=== PATIENT | female | born 1985 | race Caucasian/White ===

== ENCOUNTER 2017-09-20 06:10 | Emergency (ER) | payer BC ==
[~2017-09-20] VITALS: Ht 172.7 cm; Wt 99.8 kg
[2017-09-20] MEDS ORDERED: OMEPRAZOLE10 M1 ORAL (06:28)
--- NOTE | 2017-09-20 06:29 | Emergency Room Report ---
History of Present Illness General Chief Complaint: Chest Pain Source: Patient Present Illness HPI 32-year-old female with a history of gastroesophageal reflux disease Comes ER with complaints of right inframammary area rib pain It started when she woke up this morning, sharp, nonradiating, and she has no other symptoms She's not tried any medications Allergies: Coded Allergies: No Known Allergies (Unverified , 09/20/17) Patient History Past Medical History: see triage record Last Menstrual Period: 09/19/17 Now: No Reviewed Nursing Documentation: PMH: Agreed; PSxH: Agreed Nursing Documentation-PMH Past Medical History: No History, Except For Hx Gastrointestinal Problems: No - Endometriosis Review of Systems All Other Systems: negative except mentioned in HPI Physical Exam Vital Signs Date Time Temp Pulse Resp B/P (MAP) Pulse Ox O2 Delivery O2 Flow Rate FiO2 09/20/17 06:19 98.3 95 21 108/67 97 Room Air 98.2 Sp02 EP Interpretation: reviewed, normal General Appearance: no apparent distress, alert, non-toxic Head: normocephalic Eyes: bilateral eye normal inspection, bilateral eye PERRL, bilateral eye EOMI ENT: normal ENT inspection, hearing grossly normal, normal pharynx, no angioedema, normal voice, moist mucus membranes Neck: normal inspection, full range of motion, supple, supple/symm/no masses Respiratory: chest non-tender, lungs clear, normal breath sounds, chest symmetrical, palpation of chest normal Cardiovascular #1: normal peripheral pulses, regular rate, rhythm Cardiovascular #2: 2+ radial (R), 2+ radial (L) Gastrointestinal: normal inspection, non tender, soft, no mass, no guarding, no rebound Rectal: deferred Genitourinary: normal inspection, no CVA tenderness Musculoskeletal: back normal, gait/station normal, normal range of motion, non- tender, no calf tenderness, Desiree's Sign negative Neurologic: alert, responsive, 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 Considered aortic dissection, will re-evaluate. EKG Diagnostic Results EKG Time: 06:31 EP Interpretation: no st-t changes, no twi, normal qtc Rate: normal Rhythm: NSR ST Segments: no acute changes Rhythm Strip Diag. Results Rhythm Strip Time: 06:34 EP Interpretation: yes Rate: 105 Rhythm: NSR, no PVC's, no ectopy Chest X-Ray Diagnostic Results Chest X-Ray Diagnostic Results : Chest X-Ray Ordered: Yes # of Views/Limited/Complete: 2 View Indication: Chest Pain EP Interpretation: Yes Interpretation: no consolidation, no effusion, no pneumothorax, no acute cardiopulmonary disease Impression: No acute disease Electronically Signed by: Darshan Mack MD Last Vital Signs Date Time Temp Pulse Resp B/P (MAP) Pulse Ox O2 Delivery O2 Flow Rate FiO2 09/20/17 06:19 98.3 95 21 108/67 97 Room Air 98.2 DARSHAN MACK M.D Sep 20, 2017 06:29
[2017-09-20 06:37] VITALS: BP 134/93
[2017-09-20] MEDS ORDERED: Dicyclomine HCl 10mg/5ml oral soln ORAL ONE (06:45)
[2017-09-20] MEDS ORDERED: Lidocaine 2% Visc 15ml soln ORAL ONE (06:45)
[2017-09-20] MEDS ORDERED: GI Cocktail 120ml ORAL ONE (06:45)
[2017-09-20] MEDS ORDERED: Mylanta II UD 30ml ORAL ONE (06:45)
[2017-09-20 07:03] LABS: APPEARANCE,URINE TURBID; BILIRUBIN, URINE NEGATIVE (NEGATIVE); GLUCOSE, URINE (UA) NEGATIVE (NEGATIVE); KETONES,URINE 1+ (NEGATIVE); LEUKOCYTE ESTERASE ,URINE 2+ (NEGATIVE); NITRITE,URINE POSITIVE (NEGATIVE); PH,URINE 5 (4.5-8.0); PROTEIN,URINE 3+ (NEGATIVE); UROBILINOGEN,URINE 1 MG/DL (0.0-1.0)
[2017-09-20 07:18] LABS: COLOR,URINE YELLOW
[2017-09-20 07:20] LABS: BASOPHILS % (AUTO) 0.9 % (0.0-2.0); EOSINOPHILS % (AUTO) 2.3 % (0.0-3.0); HEMOGLOBIN 15.4 G/DL (12.0-16.0); LYMPHOCYTES % (AUTO) 46.1 % (20.0-45.0); MEAN CORPUSCULAR VOLUME 97 FL (80-99); MONOCYTES % (AUTO) 7.3 % (1.0-10.0); NEUTROPHILS % (AUTO) 43.3 % (45.0-75.0); PLATELET COUNT 250 K/UL (150-450); RED BLOOD COUNT 4.35 M/UL (4.20-5.40); RED CELL DISTRIBUTION WIDTH 11.7 % (11.6-14.8); WHITE BLOOD COUNT 6.2 K/UL (4.8-10.8)
[2017-09-20] MEDS ORDERED: cefTRIAXone 1 GM in D5W 55 ML IVPB ONE (07:30)
[2017-09-20 07:41] LABS: ANION GAP 11 mmol/L (5-15); BLOOD UREA NITROGEN 10 mg/dL (7-18); CALCIUM 8.7 MG/DL (8.5-10.1); CARBON DIOXIDE 24 MMOL/L (21-32); CHLORIDE 105 MMOL/L (98-107); CREATININE 0.8 MG/DL (0.55-1.30); POTASSIUM 3.6 MMOL/L (3.5-5.1); SODIUM 140 MMOL/L (136-145)
[2017-09-20 07:45] LABS: ALANINE AMINOTRANSFERASE 45 U/L (12-78); ALBUMIN 3.6 G/DL (3.4-5.0); ALBUMIN/GLOBULIN RATIO 0.9 (1.0-2.7); ALKALINE PHOSPHATASE 62 U/L (46-116); ASPARTATE AMINO TRANSFERASE 25 U/L (15-37); BILIRUBIN,TOTAL 0.3 MG/DL (0.2-1.0)
[2017-09-20 08:19] VITALS: BP_SYST 118; BP_DIAS 74; BP_DIAS 76
[2017-09-20] MEDS ORDERED: Acetaminophen 500mg (ES) tab ORAL ONE (08:30)
--- NOTE | 2017-09-20 09:52 | Diagnostic Imaging Report ---
INDICATION: Chest pain TECHNIQUE: IV administration nonionic contrast. Arterial phase spiral acquisitions obtained through the chest, abdomen, and pelvis. Multiplanar 3d reconstructions were generated. Total dose length product 1327.95 mGycm. CTDIvol(s) 18.33 mGy. Radiation dose was minimized using automated exposure control COMPARISON: FINDINGS Vascular: No evidence of thoracic aortic aneurysm or dissection. There is variant anatomy of separate origin of the vertebral artery from the aortic arch. Normal caliber great neck vessels. No evidence of abdominal aortic aneurysm or dissection. Normal caliber visceral vessels. There are 2 right renal arteries incidentally noted. Normal caliber iliac arteries. Exam protocol not tailored for exclusion of pulmonary embolus, but pulmonary arteries are fairly well opacified centrally, and there is no gross evidence of acute pulmonary embolus. Chest: The lungs are clear. No infiltrates, effusions, or congestion demonstrated. No mediastinal or hilar mass or adenopathy. The heart size is normal. There is a small sliding-type hiatal hernia. The esophagus is otherwise unremarkable. The included portions of the thyroid are unremarkable. No axillary or chest wall mass or adenopathy. No pericardial effusion. Abdomen and pelvis: The liver, gallbladder, bile ducts, pancreas, spleen, adrenals, kidneys are unremarkable. There is incidental finding of a circumaortic left renal vein. Uterus, ovaries, bladder are unremarkable. There is no evidence of diverticulosis or diverticulitis. The appendix is normal. No small bowel distention. No free or loculated intraperitoneal air or fluid is evident. IMPRESSION: Essentially unremarkable exam. No evidence of thoracic or abdominal aortic aneurysm or dissection or other acute or significant abnormality The CT scanner at [facility] is accredited by the [employer] and the scans are performed using protocols designed to limit radiation exposure to as low as reasonably achievable to attain images of sufficient resolution adequate for diagnostic evaluation.
[2017-09-20] MEDS ORDERED: IBUPROFEN600 MG ORAL (10:00)
[2017-09-20] MEDS ORDERED: CIPROFLOXACIN500 M2 ORAL (10:00)
[2017-09-20 10:19] VITALS: BP 115/78
--- NOTE | 2017-09-20 10:48 | Diagnostic Imaging Report ---
Indication: Chest pain Technique: 2 views of the chest Comparison: None Findings: Lungs and pleural spaces are clear. The heart size is normal. The bones are unremarkable. No significant interim change. Impression: Negative
--- NOTE | 2017-09-20 13:40 | Cardiology Report ---
APPROVED REPORT EKG Measurement Heart [id number] Normal sinus rhythm Cannot rule out Anterior infarct, age undetermined Abnormal ECG
== END 2017-09-20 10:21 | disposition home or self-care (01) ==
LOC: EMR 06:36
DX: R07.81 Pleurodynia (principal); R07.9 Chest pain, unspecified; K21.9 Gastro-esophageal reflux disease without esophagitis
CPT/HCPCS: 36415; 71046; 71260; 74177; 80053; 81003; 81025; 83690; 84484; 85025; 85379; 87086; 93005; 96361; 96374; 99284; J0696; Q9967; S0028